=== PATIENT | female | born 1965 | race Caucasian/White ===

== ENCOUNTER 2017-04-18 19:14 | Emergency (ER) | payer BC, OTHER ==
[2017-04-18 20:18] VITALS: BP 137/86; PULSE 76; TEMP 98.8; BMI 27.2
--- NOTE | 2017-04-18 20:18 | PDOC ---
Rapid Medical Evaluation Time Seen by Provider: 04/18/17 20:12 Medical Evaluation: 04/18/17 20:12 I have performed a brief in-person evaluation of this patient. The patient presents with a chief complaint of: B/L ear "buzzing noise" x2 days with temp 102.3 F yesterday. Pt also c/o B/L jaw swelling for 5 years w/o sore throat. Non/v. No pain when swallowing pT SAW HER PMD LAST YEAR AND WAS TOLD TO F/U WITH ent. pT MADE THE APPT A YEAR AGO FOR THIS YEAR. APPT WITH ENT ON JULY 11, 2017/[facility] ENT PHYSICIAN'S NAME Pertinent physical exam findings L>R mandibular swelling I have ordered the followin The patient will proceed to the ED for further evaluation
--- NOTE | 2017-04-18 20:59 | PDOC ---
History of Present Illness - General Chief Complaint: Edema Stated Complaint: PAIN Time Seen by Provider: 04/18/17 20:12 History Source: Patient Exam Limitations: No Limitations - History of Present Illness Initial Comments: 04/18/17 21:27 52-year-old female presents to the emergency room with complaints of swelling to bilateral jawline for the past year worsening in severity causing her now difficulty with swallowing and chewing patient denies sudden popping sound, swelling within her oral cavity, recent dental work, recent illness, fever, or neck pain. Patient was seen by ENT specialist approximately 9 months ago but states swelling was not as severe and the pain was attributed to bilateral cerumen impaction which at the time years were irrigated. Patient has an appointment in June with an ENT specialist but states since symptoms are worsening she decided come to the ER. Timing/Duration: getting worse Severity: mild Associated Symptoms: reports: denies symptoms Past History - Travel Traveled outside of the country in the last 30 days: No - Past Medical History Allergies/Adverse Reactions: Allergies Allergy/AdvReac Type Severity Reaction Status Date / Time No Known Allergies Allergy Verified 04/18/17 20:18 Home Medications: Ambulatory Orders Amlodipine Besylate 10 mg PO ASDIR 04/18/17 Ranitidine HCl 150 mg PO ASDIR 04/18/17 COPD: No HTN: Yes - Suicide/Smoking/Psychosocial Hx Smoking History: Current every day smoker Have you smoked in the past 12 months: Yes Number of Cigarettes Smoked Daily: 4 Information on smoking cessation initiated: No Hx Alcohol Use: No Drug/Substance Use Hx: No Substance Use Type: None Patient Lives Alone: No Lives with/in: spouse/SO Review of Systems - Review of Systems Able to Perform ROS?: Yes Constitutional: No: Symptoms Reported HEENTM: Yes: Mouth Pain, Mouth Swelling Respiratory: No: Symptoms reported Cardiac (ROS): No: Symptoms Reported ABD/GI: No: Symptoms Reported : No: Symptoms Reported Musculoskeletal: No: Symptoms Reported Integumentary: Yes: Lumps Neurological: No: Symptoms reported Hematologic/Lymphatic: No: Symptoms Reported *Physical Exam - Vital Signs Last Vital Signs Temp Pulse Resp BP Pulse Ox 98.8 F 76 18 137/86 97 04/18/17 20:14 04/18/17 20:14 04/18/17 20:14 04/18/17 20:14 04/18/17 20:14 - Physical Exam General Appearance: Yes: Nourished, Appropriately Dressed. No: Apparent Distress HEENT: positive: Pharynx Normal, Other (Teeth intact. No trismus no Stensen duct tenderness or drainage.) Neck: positive: Normal Thyroid, Supple, Other (noted semi-firm raised areas over bilatral parotoid glands no increased warmth, no fluctuance). negative: Stridor, Lymphadenopathy (R), Lymphadenopathy (L) Respiratory/Chest: positive: Lungs Clear, Normal Breath Sounds. negative: Respiratory Distress, Accessory Muscle Use Cardiovascular: positive: Regular Rhythm, Regular Rate. negative: Murmur Integumentary: positive: Normal Color, Warm, Moist Medical Decision Making - Medical Decision Making 04/18/17 21:34 Patient with swelling over bilateral parotid glands for the past year worsening in severity over the past month. Patient states has an ENT appointment scheduled in June but is concerned since symptoms have worsened and has not been diagnosed with anything officially. Patient exam concerning for underlying abscess or mass. Patient ordered for CT of the soft tissue for further evaluation. 04/18/17 22:21 CT shows slightly prominent parotid gland without signs of abscess or mass. Radiologist also discussed slightly prominent lymph glands which may be reactive. Intermittently he mentions a partially visualize aorta that is slightly distended requiring a follow-up CT of the chest. patient to follow-up with ENT and given CT report. *DC/Admit/Observation/Transfer Diagnosis at time of Disposition: Parotid sialolithiasis - Discharge Dispostion Disposition: HOME Condition at time of disposition: Good - Referrals Referrals: STAFF,NOT ON [Primary Care Provider] - Angel Byrne MD [Staff Physician] - - Patient Instructions Additional Instructions: At this time the CAT scan does not show any emergent finding but I do want her to follow-up with ENT to discuss salivary gland discomfort and swelling. Incidentally the CT did also note an enlarged aorta does require follow up with your primary care physician for follow-up CT of the chest - Post Discharge Activity
== END 2017-04-18 22:34 | disposition home or self-care (01) ==
LOC: JERFT 19:14
DX: K11.5 Sialolithiasis (principal); F17.210 Nicotine dependence, cigarettes, uncomplicated
CPT/HCPCS: 70490-TC; 99281-25